=== PATIENT | female | born 1955 | race Asian ===

== ENCOUNTER 2017-12-05 10:34 | Emergency (ER) | payer BC ==
[~2017-12-05] VITALS: Ht 162.6 cm; Wt 68.0 kg
[~2017-12-05 10:34] MED LIST: ACET7.5T70 PO; CIPRO500 MG PO; CYCL10TA35 PO; FLUC150T PO; HYDR25TA60 PO; PANT40TA PO; RANI150T78 PO; SYMBYAX OR; TRIM800T12 PO
[2017-12-05 11:47] VITALS: BP 125/84; TEMP 97.7
== END 2017-12-05 11:47 | disposition home or self-care (01) ==
LOC: ED 10:34
DX: M79.7 Fibromyalgia (principal)
CPT/HCPCS: 96372; 99282; J1885

== ENCOUNTER 2018-03-14 12:56 | Emergency (ER) | payer BC ==
[~2018-03-14] VITALS: Ht 162.6 cm; Wt 68.0 kg
[2018-03-14 13:05] VITALS: TEMP 97.9
[2018-03-14 14:15] VITALS: BP 144/84
== END 2018-03-14 14:15 | disposition home or self-care (01) ==
LOC: ED 12:56
DX: L03.012 Cellulitis of left finger (principal); W26.8XXA Contact with other sharp object(s), not elsewhere classified, initial encounter
CPT/HCPCS: 99281

== ENCOUNTER 2018-04-23 09:52 | Emergency (ER) | payer OTHER ==
[~2018-04-23] VITALS: Ht 162.6 cm; Wt 70.3 kg
[2018-04-23 09:59] VITALS: TEMP 97.9
[2018-04-23 10:59] VITALS: BP 148/88
== END 2018-04-23 11:00 | disposition home or self-care (01) ==
LOC: ED 09:52
DX: R51 Headache (principal); I10 Essential (primary) hypertension; K21.9 Gastro-esophageal reflux disease without esophagitis; M79.7 Fibromyalgia
CPT/HCPCS: 96372; 99282; J1885

== ENCOUNTER 2018-05-14 17:40 | Observation (INO) | payer OTHER ==
[~2018-05-14] VITALS: Ht 170.2 cm; Wt 75.8 kg
[2018-05-14 17:45] VITALS: BP 187/98; TEMP 98.1
[2018-05-14 18:35] LABS: PLATELET COUNT 152 K/uL (152-353)
[2018-05-14 18:43] LABS: POTASSIUM 3.7 mmol/L (3.6-5.2); SODIUM 139 mmol/L (136-145)
[2018-05-14 19:00] LABS: PARTIAL THROMBOPLASTIN TIME 24.4 SECONDS (24.5-33.6)
--- NOTE | 2018-05-14 21:10 | NUR ---
PATIENT RECEIVED FROM ER VIA STETCHER. ALERT AND ORIENTED X 3. EDUCATION GIVEN REGARDING CALL LIGHT AND BED CONTROLS. INSTRUCTED TO KEEP BED IN LOW POSITION. PATIENT VERBALIZED UNDERSTANDING. 20G TO RAC INTACT AND PATENT. REFER TO ADMISSION ASSESSMENT FOR FURTHER DETAILS.
[2018-05-14 22:52] VITALS: BP 124/58; TEMP 97.7; Ht 170.2 cm; Wt 75.8 kg
[2018-05-15] VITALS (7 sets, daily range): BP systolic 97–142; BP diastolic 56–93; TEMP 97.7–99.3
[2018-05-15] MEDS ORDERED: ESOMEPRAZOLE MA40 M1 PO (11:31)
[2018-05-15] MEDS ORDERED: NIFE30TA PO (11:33)
[2018-05-15] MEDS ORDERED: DULO60CA2 PO (11:33)
[2018-05-15] MEDS ORDERED: BACLOFEN10 MG PO (11:34)
[2018-05-15] MEDS ORDERED: CARV3.12 PO (11:34)
[2018-05-15] MEDS ORDERED: PERCOCET1 TA1 PO (11:36)
[2018-05-15] MEDS ORDERED: LIDOCAINE51 TD (11:38)
[2018-05-16 04:00] VITALS: BP 132/73
[2018-05-16 05:19] LABS: PLATELET COUNT 139 K/uL (152-353)
[2018-05-16 06:54] LABS: POTASSIUM 3.9 mmol/L (3.6-5.2)
[2018-05-16 08:00] VITALS: BP 156/90; TEMP 97.8
[2018-05-16] MEDS ORDERED: PANTOPRAZOLE 40MG TA PO (11:21)
[2018-05-16] MEDS ORDERED: LEVAQUIN250 MG PO (11:22)
--- NOTE | 2018-05-16 13:24 | NUR ---
IV D/C TIP INTACT. PT WHEELED OUT VIA W/C
== END 2018-05-16 12:15 | disposition home or self-care (01) ==
LOC: ED 17:40 → MED/SURG 19:22
PROVIDERS: Family Medicine; ADMIT Family Medicine
DX: R07.89 Other chest pain (principal); R94.31 Abnormal electrocardiogram [ECG] [EKG]; J18.8 Other pneumonia, unspecified organism; I10 Essential (primary) hypertension; K21.9 Gastro-esophageal reflux disease without esophagitis; M13.88 Other specified arthritis, other site; I73.00 Raynaud's syndrome without gangrene
CPT/HCPCS: 36415; 80053; 80061; 82550; 82553; 83880; 84484; 85027; 85379; 85610; 85730; 93005; 94760; 96365; 96368; 99220; 99284; G0378; J0456; J0696; J1650; J2060; J3490

== ENCOUNTER 2018-06-13 17:01 | Emergency (ER) | payer OTHER ==
[~2018-06-13] VITALS: Ht 170.2 cm; Wt 69.9 kg
[~2018-06-13 17:01] MED LIST changes: +BACLOFEN10 MG PO; +CARV3.12 PO; +DULO60CA2 PO; +ESOMEPRAZOLE MA40 M1 PO; +LEVAQUIN250 MG PO; +LIDOCAINE51 TD; +NIFE30TA PO; +PANTOPRAZOLE 40MG TA PO; +PERCOCET1 TA1 PO
[2018-06-13] MEDS ORDERED: GABA300C2 PO (17:17)
[2018-06-13] MEDS ORDERED: PANTOPRAZOLE 40MG TA PO (17:17)
[2018-06-13] MEDS ORDERED: CVS OMEPRAZOLE20 MG PO (17:17)
[2018-06-13 18:46] LABS: PLATELET COUNT 157 K/uL (152-353)
[2018-06-13 19:24] LABS: POTASSIUM 3.8 mmol/L (3.6-5.2)
[2018-06-13 20:22] VITALS: BP 139/85; TEMP 98.3
== END 2018-06-13 20:24 | disposition home or self-care (01) ==
LOC: ED 17:01
PROVIDERS: Family Medicine
DX: J40 Bronchitis, not specified as acute or chronic (principal)
CPT/HCPCS: 36415; 80053; 81000; 85027; 94664; 96374; 99284; J1885

== ENCOUNTER 2018-06-28 11:44 | Emergency (ER) | payer OTHER ==
[~2018-06-28] VITALS: Ht 170.2 cm; Wt 68.5 kg
[~2018-06-28 11:44] MED LIST changes: +CVS OMEPRAZOLE20 MG PO; +GABA300C2 PO
[2018-06-28 11:50] VITALS: TEMP 98.2
[2018-06-28 12:48] LABS: POTASSIUM 4.5 mmol/L (3.6-5.2)
[2018-06-28 13:59] LABS: PLATELET COUNT 187 K/uL (152-353)
[2018-06-28 14:26] VITALS: BP 138/78
== END 2018-06-28 14:32 | disposition home or self-care (01) ==
LOC: ED 11:44
PROVIDERS: Emergency Medicine
DX: J18.9 Pneumonia, unspecified organism (principal)
CPT/HCPCS: 80053; 81000; 83880; 84443; 84484; 85027; 85379; 87502; 87651; 93005; 99284; Q9963

== ENCOUNTER 2018-07-04 02:55 | Outpatient (CLI) | payer OTHER | END 2018-07-04 02:59 | disposition short-term general hospital (02) | LOC: AMB 02:55 | DX: R07.89 Other chest pain (principal); R06.02 Shortness of breath | CPT/HCPCS: A0425; A0427 ==

== ENCOUNTER 2018-07-04 02:59 | Emergency (ER) | payer OTHER ==
[~2018-07-04] VITALS: Ht 170.2 cm; Wt 68.5 kg
[2018-07-04 05:53] VITALS: BP 137/84; TEMP 98.2
== END 2018-07-04 05:47 | disposition home or self-care (01) ==
LOC: ED 03:03
DX: J18.9 Pneumonia, unspecified organism (principal); M94.0 Chondrocostal junction syndrome [Tietze]
CPT/HCPCS: 93005; 96372; 99283; J1885

== ENCOUNTER 2018-07-09 22:56 | Outpatient (CLI) | payer OTHER | END 2018-07-09 23:00 | disposition short-term general hospital (02) | LOC: AMB 22:56 | DX: R44.2 Other hallucinations (principal) | CPT/HCPCS: A0425; A0429 ==

== ENCOUNTER 2018-07-09 23:08 | Inpatient (IN) | payer OTHER ==
[~2018-07-09] VITALS: Ht 170.2 cm; Wt 79.4 kg
[2018-07-09 23:08] VITALS: BP 149/88; TEMP 97.8
[2018-07-10] VITALS (23 sets, daily range): BP systolic 54–168; BP diastolic 42–96; TEMP 96.1–97.9; Ht 170.2 cm; Wt 79.4 kg
[2018-07-10 02:22] LABS: PLATELET COUNT 191 K/uL (152-353)
[2018-07-10 03:01] LABS: POTASSIUM 3.6 mmol/L (3.6-5.2); SODIUM 120 mmol/L (136-145)
[2018-07-10 08:24] LABS: PLATELET COUNT 149 K/uL (152-353)
[2018-07-10 17:32] LABS: PLATELET COUNT 150 K/uL (152-353)
[2018-07-10 17:40] LABS: POTASSIUM 5.7 mmol/L (3.6-5.2)
== END 2018-07-10 20:40 | disposition expired | DRG 871 ==
LOC: ED 23:08 → MED/SURG 07-10 03:45 → ICU 07-10 08:16
PROVIDERS: ADMIT Family Medicine
PROC: 5A1935Z Respiratory Ventilation, Less than 24 Consecutive Hours (ICD-10-PCS; principal; 2018-07-10)
PROC: 0BH17EZ Insertion of Endotracheal Airway into Trachea, Via Natural or Artificial Opening (ICD-10-PCS; 2018-07-10)
DX: A41.89 Other specified sepsis (principal); J18.8 Other pneumonia, unspecified organism; J96.00 Acute respiratory failure, unspecified whether with hypoxia or hypercapnia; I10 Essential (primary) hypertension; K21.9 Gastro-esophageal reflux disease without esophagitis
CPT/HCPCS: 31500; 36415; 36600; 80048; 80053; 80307; 80320; 80329; 81000; 82550; 82553; 82805; 83605; 84484; 85027; 85379; 87040; 87502; 87899; 92950; 93005; 94002; 94003; 94640; 94660; 94664; 94760; 96365; 99284; J0171; J0456; J0461; J0696; J1265; J2250; J3490